=== PATIENT | female | born 1985 | race Asian ===

== ENCOUNTER 2017-01-24 09:48 | Inpatient (IN) | payer OTHER ==
[2017-01-24 11:38] LABS: Hematocrit 41 % (35-47); Hemoglobin 14.2 g/dl (12.0-16.0); Mean Corpuscular HGB Conc 35 g/dl (31-36); Mean Corpuscular Hemoglobin 32 pg (27-31); Mean Corpuscular Volume 92 fL (80-97); Mean Platelet Volume 11 um3 (7.4-10.4); Red Cell Distribution Width 15 % (10.5-15); White Blood Count 10.2 10^3/ul (3.5-10.8)
[2017-01-24] MEDS ORDERED: OBEPIDURAL* 250 ML ONE ×2 (13:43→23:58)
[2017-01-24] MEDS ORDERED: fentaNYL* 50 MCG/ML 2 ML VIAL (100 MCG VIAL) ONE (13:45)
[2017-01-24] MEDS ORDERED: HYDROmorphone* 1 MG/ML 1 ML SYR ONE (13:45)
[2017-01-24] MEDS ORDERED: Oxytocin in LR* 20 UNITS/1,000 ML BAG IVPB ONE (15:34)
[2017-01-24] MEDS ORDERED: Oxytocin in LR* 20 UNITS/1,000 ML BAG IVPB SCH (16:00)
[2017-01-25] MEDS ORDERED: Phenylephrine IV* 40 MCG/ML 10 ML SYRINGE IV PUSH PRN ×2 (00:16)
[2017-01-25] MEDS ORDERED: EPHEDrine (Pressors)* 50 MG/ML VIAL IV PUSH PRN ×2 (00:16)
[2017-01-25] MEDS ORDERED: Famotidine TAB* 20 MG PO PRN (00:16)
[2017-01-25] MEDS ORDERED: Sodium Citrate/Citric Acid* 15 ML UDC PO PRN (00:16)
[2017-01-25] MEDS ORDERED: OBEPIDURAL* 250 ML EPIDURAL SCH (01:00)
[2017-01-25] MEDS ORDERED: Oxytocin in LR* 20 UNITS/1,000 ML BAG IVPB ONE (13:41)
[2017-01-25] MEDS ORDERED: Methylergonovine INJ* 0.2 MG/ML 1ML AMP ONE (14:41)
[2017-01-25] MEDS ORDERED: Methylergonovine INJ* 0.2 MG/ML 1ML AMP IM ONE (15:03)
[2017-01-25] MEDS ORDERED: Acetaminophen TAB* 325 MG PO PRN (15:03)
[2017-01-25] MEDS ORDERED: Dibucaine 1% 28.35 GM TUBE PR PRN (15:03)
[2017-01-25] MEDS ORDERED: Witch Hazel PAD* JAR TOPICAL PRN (15:03)
[2017-01-25] MEDS ORDERED: Oxytocin in LR* 20 UNITS/1,000 ML BAG IVPB SCH (16:00)
[2017-01-25] MEDS: Ibuprofen TAB* 600 MG PO PRN (17:07)
[2017-01-25] MEDS ORDERED: Simethicone CHEW TAB* 80 MG PO SCH (17:30)
[2017-01-25] MEDS: Docusate CAP* 100 MG PO SCH (20:38)
[2017-01-26 08:41] LABS: Hematocrit 35 % (35-47); Hemoglobin 11.9 g/dl (12.0-16.0); Mean Corpuscular HGB Conc 34 g/dl (31-36); Mean Corpuscular Hemoglobin 31 pg (27-31); Mean Corpuscular Volume 92 fL (80-97); Mean Platelet Volume 9 um3 (7.4-10.4); Red Blood Count 3.79 10^6/ul (4.0-5.4); Red Cell Distribution Width 15 % (10.5-15); White Blood Count 13.6 10^3/ul (3.5-10.8)
[2017-01-26] MEDS: Docusate CAP* 100 MG PO SCH ×3 (08:47→21:45)
[2017-01-26] MEDS: Prenatal Vitamin TAB PO SCH (08:47)
[2017-01-26] MEDS: Ibuprofen TAB* 600 MG PO PRN (17:28)
[2017-01-27] MEDS: Ibuprofen TAB* 600 MG PO PRN (06:28)
[2017-01-27] MEDS: Docusate CAP* 100 MG PO SCH (08:38)
[2017-01-27] MEDS: Prenatal Vitamin TAB PO SCH (08:39)
[2017-01-27 08:45] VITALS: BP 110/69
== END 2017-01-27 11:49 | disposition home or self-care (01) | DRG 542 ==
LOC: MCHOBOUT 09:48 → MCHOB 09:58
PROVIDERS: ADMIT Obstetrics & Gynecology; ATTEND Obstetrics & Gynecology
PROC: 10E0XZZ Delivery of Products of Conception, External Approach (ICD-10-PCS; principal; 2017-01-25)
PROC: 0KQM0ZZ Repair Perineum Muscle, Open Approach (ICD-10-PCS; 2017-01-25)
PROC: 0DQR0ZZ Repair Anal Sphincter, Open Approach (ICD-10-PCS; 2017-01-25)
PROC: 10H07YZ Insertion of Other Device into Products of Conception, Via Natural or Artificial Opening (ICD-10-PCS; 2017-01-25)
DX: O70.20 Third degree perineal laceration during delivery, unspecified (principal); Z37.0 Single live birth; O99.820 Streptococcus B carrier state complicating pregnancy; O76 Abnormality in fetal heart rate and rhythm complicating labor and delivery; Z3A.39 39 weeks gestation of pregnancy
CPT/HCPCS: 36415; 85025; 86850; 86900; 86901; A9270-GY; J1170; J2210; J3010